=== PATIENT | male | born 1995 | race Two or more races ===

== ENCOUNTER 2018-10-02 23:12 | Emergency (ER) | payer OTHER ==
[~2018-10-02] VITALS: Ht 167.6 cm; Wt 67.0 kg
[2018-10-02 23:58] VITALS: BP 110/84
== END 2018-10-03 00:05 | disposition home or self-care (01) ==
LOC: ED 23:59
DX: S83.015A Lateral dislocation of left patella, initial encounter (principal); X50.1XXA Overexertion from prolonged static or awkward postures, initial encounter; Y93.89 Activity, other specified; Y92.89 Other specified places as the place of occurrence of the external cause; Y99.8 Other external cause status
CPT/HCPCS: 27560; 99284